=== PATIENT | male | born 1955 | race Caucasian/White ===

== ENCOUNTER 2024-09-27 16:28 | Emergency (ER) | payer OTHER, MEDICARE, SELFPAY ==
[2024-09-27 16:35] VITALS: BP 156/68; PULSE 57; RESP 16; TEMP 36.7; O2SAT 100; BMI 21.7
--- NOTE | 2024-09-27 17:04 | ED.EYEPROB ---
HPI - Eye Problem <Mani Loja PA-C - Last Filed: 09/27/24 18:57> General Chief complaint: Eye Problems Stated complaint: WIC: t-4 floating image in RT eye Time Seen by Provider: 09/27/24 17:04 Source: patient Mode of arrival: Ambulatory History of Present Illness HPI Narrative: 69-year-old male with past medical history hypertension, hyperlipidemia, hypothyroidism presents to the ED with 4 days of floaters and smoky vision in the right eye. Patient also endorses mild pressure in the right eye. No eye pain. No pain with extraocular movements. Patient states that his vision is not completely occluded, however that he feels like he is looking through smoke. Patient does not complain of any visual field loss. No history of glaucoma, although his cream separator operator had mentioned to him about possibility that he could be developing glaucoma. Patient saw his cream separator operator about a year ago. Patient wears glasses for refractory correction. Patient does not wear contact lenses. Patient denies headache, nausea, vomiting. No trauma. Related Data Home Medications Medication Instructions Recorded Confirmed hydrochlorothiazide 12.5 mg capsule 12.5 mg PO DAILY 10/10/23 10/10/23 Previous Rx's Medication Instructions Recorded cyclobenzaprine 5 mg tablet 5 mg PO TID PRN muscle spasm #20 09/12/22 tabs Allergies Allergy/AdvReac Type Severity Reaction Status Date / Time No Known Drug Allergies Allergy Unverified 10/10/23 18:04 Review of Systems <Mani Loja PA-C - Last Filed: 09/27/24 18:57> Constitutional Constitutional: Denies chills, Denies fatigue, Denies fever(s), Denies frequent falls, Denies lethargy and Denies weakness Eyes Eyes: Denies change in vision, Denies eye discharge, Reports floaters (right eye), Denies irritation and Denies loss of vision Comments: mild pressure in the R eye ENT Ears, Nose, Mouth, and Throat: Denies change in voice, Denies dizziness, Denies neck pain, Denies sore throat and Denies throat swelling Cardiovascular Cardiovascular: Denies chest pain, Denies irregular heart rhythm, Denies lightheadedness, Denies palpitations, Denies dyspnea, Denies dyspnea on exertion and Denies orthopnea Respiratory Respiratory: Denies cough, Denies dyspnea, Denies dyspnea on exertion and Denies wheezing Gastrointestinal Gastrointestinal: Denies abdominal pain, Denies change in bowel habits, Denies diarrhea, Denies nausea and Denies vomiting Musculoskeletal Musculoskeletal: Denies neck pain and Denies numbness Integumentary/Breasts Skin/Breast: Denies pruritus, Denies erythema, Denies rash and Denies wounds Neurologic Neurologic: Denies behavioral changes, Denies confusion, Denies dizziness, Denies frequent falls, Denies loss of vision, Denies numbness and Denies weakness Psychiatric Psychiatric: Denies anxiety, Denies behavioral changes, Denies confusion, Denies depression, Denies homicidal ideation and Denies suicidal ideation Endocrine Endocrine: Denies fatigue, Denies flushing and Denies palpitations Hematologic/Lymphatic Hematologic/Lymphatic: Denies easy bruising Allergic/Immunologic Allergic/Immunologic: Denies urticaria, Denies throat swelling and Denies wheezing Patient History <Mani Loja PA-C - Last Filed: 09/27/24 18:57> Social History Smoking Status: Current every day smoker Smoking Status: Current every day smoker tobacco type: cigarettes Exam <Mani Loja PA-C - Last Filed: 09/27/24 18:57> Narrative Exam Narrative: Const General:?cooperative, healthy appearing and comfortable [facility] Head:?normal to inspection Ears:?hearing grossly normal bilaterally Nose:?external nose normal Face and sinus:?normal facial exam and sinuses nontender Mouth:?oral mucosae normal Throat:?posterior oropharynx normal Eyes General:?appearance normal; IOP 29 OD, 30 OS. Visual acuity is 20/30 OD, 20/25 OS, 2024 OU. No conjunctival injection, no corneal epithelial edema. PERRLA Neck Neck:?normal visual inspection and no lymphadenopathy noted Resp Effort & Inspection:?normal respiratory effort Auscultation:?clear to auscultation bilaterally Cardio Rate:?regular rate Rhythm:?regular rhythm Neuro General:?patient alert, patient awake and patient oriented x3 Initial Vital Signs Initial Vital Signs: Vital Signs Temperature 98.1 F 09/27/24 16:35 Pulse Rate 57 L 09/27/24 16:35 Respiratory Rate 16 09/27/24 16:35 Blood Pressure 156/68 H 09/27/24 16:35 Pulse Oximetry 100 09/27/24 16:35 Oxygen Delivery Method Room Air 09/27/24 16:35 <Ijeoma Davis DO - Last Filed: 10/01/24 07:18> Initial Vital Signs Initial Vital Signs: Vital Signs Temperature 98.1 F 09/27/24 16:35 Pulse Rate 57 L 09/27/24 16:35 Respiratory Rate 16 09/27/24 16:35 Blood Pressure 156/68 H 09/27/24 16:35 Pulse Oximetry 100 09/27/24 16:35 Oxygen Delivery Method Room Air 09/27/24 16:35 Course <Mani Loja PA-C - Last Filed: 09/27/24 18:57> Orders Ordered: Discontinued Medications Fluorescein Sodium (Fluorescein 1 Mg Strip) 1 mg EYE-RIGHT NOW ONE Stop: 09/27/24 17:20 Last Admin: 09/27/24 17:30 Dose: 1 mg Documented By: SPF Proparacaine HCl (Proparacaine 0.5% Ophth Jenna) 1 drops EYE-BOTH NOW ONE Stop: 09/27/24 17:28 Last Admin: 09/27/24 17:29 Dose: 1 drop Documented By: SPF Vital Signs Vital signs: Vital Signs - 8 hr 09/27/24 16:35 09/27/24 18:42 Temperature 98.1 F Pulse Rate 57 L 57 L Respiratory Rate 16 14 Blood Pressure 156/68 H 129/72 Pulse Oximetry 100 97 Oxygen Delivery Method Room Air Room Air <Ijeoma Davis DO - Last Filed: 10/01/24 07:18> Orders Ordered: Discontinued Medications Fluorescein Sodium (Fluorescein 1 Mg Strip) 1 mg EYE-RIGHT NOW ONE Stop: 09/27/24 17:20 Last Admin: 09/27/24 17:30 Dose: 1 mg Documented By: SPF Proparacaine HCl (Proparacaine 0.5% Ophth Jenna) 1 drops EYE-BOTH NOW ONE Stop: 09/27/24 17:28 Last Admin: 09/27/24 17:29 Dose: 1 drop Documented By: SPF Vital Signs Vital signs: Vital Signs - 8 hr 09/27/24 16:35 09/27/24 18:42 Temperature 98.1 F Pulse Rate 57 L 57 L Respiratory Rate 16 14 Blood Pressure 156/68 H 129/72 Pulse Oximetry 100 97 Oxygen Delivery Method Room Air Room Air MDM - Eye Problem <Mani Loja PA-C - Last Filed: 09/27/24 18:57> [facility] Narrative Medical decision making narrative: 69-year-old male with past medical history hypertension, hyperlipidemia, hypothyroidism presents to the ED with 4 days of floaters and smoky vision in the right eye. Concern for retinal detachment versus vitreous hemorrhage versus vitreous detachment versus glaucoma versus other. Fluorescein exam is negative. IOP 29 OD, 30 OS. Visual acuity is 20/30 OD, 20/25 OS, 2024 OU. Will consult [facility] ophthalmology. Will reassess. Dr. Da Silva from [place] [facility] was consulted. He recommends that patient is safe for discharge today, to follow-up with his dietary aide tomorrow for a eye exam. [employer] Administrator to referred to Ophthalmology as needed. Discussed findings with patient. Patient agrees to follow-up with his dietary aide tomorrow as recommended. ED return precautions discussed with patient. Patient verbalized understanding. Medical records reviewed: Yes Discharge Plan Departure Patient Disposition: Home Clinical Impression: Floaters Qualifiers: Laterality: right Qualified Code(s): H43.391 - Other vitreous opacities, right eye Instructions: DI for Eye Floaters Activity Restrictions/Additional Instructions: You were evaluated in the ED today for floaters in the right eye. From discussion with the cream separator operator at [facility], he recommends that you follow-up with your dietary aide tomorrow for an eye exam. The dietary aide will be able to refer you to Ophthalmology as needed based on the findings. Return to the ED if you have any worsening symptoms. Prescriptions: No Action cyclobenzaprine 5 mg tablet 5 mg PO TID PRN (Reason: muscle spasm) Qty: 20 0RF hydrochlorothiazide 12.5 mg capsule 12.5 mg PO DAILY Referrals: Miscellaneous,Doctor, MD [Primary Care Provider] - Stand Alone Forms: Patient Portal/API/Survey ED Sign-out <Ijeoma Davis DO - Last Filed: 10/01/24 07:18> Cosign ED Attending Cosignature Attestation: I was available for consultation.
[2024-09-27] MEDS: PROPARACAINE 0.5% OPHTH SOL 1 DROPS EYE-BOTH (17:29)
[2024-09-27] MEDS: FLUORESCEIN 1 MG STRIP EYE-RIGHT (17:30)
[2024-09-27 18:42] VITALS: BP 129/72; PULSE 57; RESP 14; O2SAT 97
== END 2024-09-27 18:42 | disposition home or self-care (01) ==
PROVIDERS: Emergency Provider Student in an Organized Health Care Education/Training Program
DX: H43.391 Other vitreous opacities, right eye (principal)
CPT/HCPCS: 99282